=== PATIENT | female | born 1990 | race Caucasian/White ===

== ENCOUNTER 2017-02-24 13:49 | Emergency (ER) | payer BC, MEDICAID ==
[~2017-02-24] VITALS: Ht 162.6 cm; Wt 59.0 kg
[2017-02-24] MEDS ORDERED: INSU100V3 SUBCUT (13:54)
[2017-02-24] MEDS ORDERED: TRAMADOL 50MG TABLET PO ONE (15:45)
[2017-02-24 17:13] VITALS: BP 122/84
== END 2017-02-24 17:14 | disposition home or self-care (01) ==
LOC: ER 14:19
DX: M54.5 Low back pain (principal); M47.817 Spondylosis without myelopathy or radiculopathy, lumbosacral region; E11.69 Type 2 diabetes mellitus with other specified complication; W18.30XA Fall on same level, unspecified, initial encounter; Y09 Assault by unspecified means; Y92.9 Unspecified place or not applicable; Y93.89 Activity, other specified
CPT/HCPCS: 72100; 99284

== ENCOUNTER 2018-12-24 22:21 | Emergency (ER) | payer BC, MEDICAID ==
[~2018-12-24] VITALS: Ht 165.1 cm; Wt 68.0 kg
[~2018-12-24 22:21] MED LIST: INSU100V3 SUBCUT
[2018-12-25] MEDS ORDERED: ONDANSETRON 4MG ODT PO ONE (00:45)
[2018-12-25] MEDS ORDERED: ONDANSETRON HCL 4MG/2ML INJ IV STA (00:52)
[2018-12-25] MEDS ORDERED: SODIUM CHLORIDE 0.9% 1,000 ML IV ONE ×3 (00:57→07:37)
[2018-12-25 01:22] LABS: BASOPHILS % 0.3 % (0.0-2.0); HEMATOCRIT. 43.2 % (36.0-48.0); HEMOGLOBIN. 14.7 g/dL (12.0-16.0); LYMPHOCYTES % 7.8 % (20.0-50.0); MEAN CORPUSCULAR VOLUME 91.2 fL (81.0-99.0); MEAN PLATELET VOLUME 9.4 fl (7.4-10.4); MONOCYTES % 2.3 % (2.0-8.0); NEUTROPHILS % 89.6 % (40.0-76.0); PLATELET 349 x1000/uL (130-400); RED BLOOD CELL COUNT 4.74 mill/uL (4.2-5.4); RED CELL DISTRIBUTION WIDTH 12.6 % (11.6-14.6)
[2018-12-25 01:26] LABS: CHLORIDE 98 mEq/L (98-107)
[2018-12-25 01:29] LABS: HCG SCREEN NEGATIVE
[2018-12-25 01:56] LABS: ETHANOL BLOOD < 10 mg/dL
[2018-12-25 03:22] LABS: CLARITY URINE CLEAR (CLEAR); COLOR URINE YELLOW (YELLOW); KETONES URINE 4+ (NEGATIVE); LEUKOCYTE ESTERASE URINE NEGATIVE (NEGATIVE); NITRITE URINE NEGATIVE (NEGATIVE); OCCULT BLOOD URINE 2+ (NEGATIVE); PROTEIN URINE NEGATIVE (NEGATIVE); SPECIFIC GRAVITY URINE 1.027 (1.005-1.030); UROBILINOGEN URINE 0.2 E.U./dL (0.2-1.0)
[2018-12-25] MEDS ORDERED: VISCOUS LIDOCAINE 2% 15 ML UDC PO STA (03:23)
[2018-12-25] MEDS ORDERED: MAGNESIUM/ALUMINUM HYDROXIDE/SIMETHICONE 30ML UDC PO STA (03:23)
[2018-12-25] MEDS ORDERED: ACETAMINOPHEN 325MG TABLET PO ONE (03:30)
[2018-12-25] MEDS ORDERED: ONDANSETRON HCL 4MG/2ML INJ IV ONE (03:30)
[2018-12-25 03:45] LABS: *AMPHETAMINES SCREEN URINE NEGATIVE (NEGATIVE)
[2018-12-25 03:46] LABS: *BARBITURATES SCREEN URINE NEGATIVE (NEGATIVE); *BENZODIAZEPINES SCREEN URINE NEGATIVE (NEGATIVE); *COCAINE SCREEN URINE NEGATIVE (NEGATIVE); OPIATES URINE SCREEN NEGATIVE (NEGATIVE); PHENCYCLIDINE URINE SCREEN NEGATIVE (NEGATIVE)
[2018-12-25 04:00] LABS: CANNABINOID URINE SCREEN PRESUMTIVE POSITIVE (NEGATIVE); METHADONE URINE SCREEN PRESUMTIVE POSITIVE (NEGATIVE)
[2018-12-25] MEDS ORDERED: HALOPERIDOL LACTATE 5MG/ML VIAL IM ONE (04:30)
[2018-12-25] MEDS ORDERED: DIPHENHYDRAMINE 50MG/ML VIAL IV SCH (05:30)
[2018-12-25] MEDS ORDERED: INSULIN REGULAR (HUMULIN R) UD 100 UNITS/ML SYR IV ONE ×2 (06:00→07:45)
[2018-12-25] MEDS ORDERED: INSULIN REGULAR (HUMULIN R) 300UNITS/3ML IV SCH (06:03)
[2018-12-25] MEDS ORDERED: INSULIN REGULAR (HUMULIN R) 300UNITS/3ML IV ONE (08:15)
[2018-12-25 10:47] VITALS: BP 112/78
== END 2018-12-25 11:00 | disposition home or self-care (01) ==
LOC: ER 22:21
DX: E10.65 Type 1 diabetes mellitus with hyperglycemia (principal); F12.20 Cannabis dependence, uncomplicated; R11.2 Nausea with vomiting, unspecified; F32.9 Major depressive disorder, single episode, unspecified; F41.9 Anxiety disorder, unspecified; Z79.4 Long term (current) use of insulin
CPT/HCPCS: 36415; 80053; 80305; 80320; 81003; 82010; 82962; 83690; 84703; 85025; 93005; 96361; 96372; 96374; 96375; 96376; 99284; J1200; J1630; J1815; J2405; J7030; Q0162; G0480

== ENCOUNTER 2019-05-19 08:09 | Emergency (ER) | payer MEDICAID ==
[~2019-05-19] VITALS: Ht 165.1 cm; Wt 66.0 kg
[2019-05-19 08:16] VITALS: BP 117/66
[2019-05-19] MEDS ORDERED: METHADONE (08:20)
== END 2019-05-19 09:35 | disposition left against medical advice (07) ==
LOC: ER 08:09
DX: F41.9 Anxiety disorder, unspecified (principal); E11.9 Type 2 diabetes mellitus without complications; Z53.21 Procedure and treatment not carried out due to patient leaving prior to being seen by health care provider
CPT/HCPCS: 82962

== ENCOUNTER 2019-07-20 08:24 | Inpatient (IN) | payer MEDICAID ==
[~2019-07-20] VITALS: Ht 172.7 cm; Wt 67.1 kg
[~2019-07-20 08:24] MED LIST changes: +INSU100I28 SQ; +INSU200I SQ; +KEPP500 MT; +METHADONE; +METO-293 MT
[2019-07-20] MEDS ORDERED: ACETAMINOPHEN WITH CODEINE 300/30MG TABLET PO STA (08:48)
[2019-07-20 09:00] LABS: BASOPHILS % 0.7 % (0.0-2.0); EOSINOPHILS % 1.4 % (0.0-5.0); HEMATOCRIT. 40.4 % (36.0-48.0); HEMOGLOBIN. 13.6 g/dL (12.0-16.0); LYMPHOCYTES % 24.5 % (20.0-50.0); MEAN CORPUSCULAR HEMOGLOBIN 31.9 pg (28.0-32.0); MEAN PLATELET VOLUME 8.6 fl (7.4-10.4); MONOCYTES % 4.1 % (2.0-8.0); NEUTROPHILS % 69.3 % (40.0-76.0); PLATELET 305 x1000/uL (130-400); RED BLOOD CELL COUNT 4.25 mill/uL (4.2-5.4); RED CELL DISTRIBUTION WIDTH 13.2 % (11.6-14.6)
[2019-07-20 09:08] LABS: CHLORIDE 100 mEq/L (98-107)
[2019-07-20 09:11] LABS: ETHANOL BLOOD < 10 mg/dL
[2019-07-20] MEDS ORDERED: KETOROLAC 15MG/ML VIAL IV ONE (09:15)
[2019-07-20 09:19] LABS: CLARITY URINE CLEAR (CLEAR); COLOR URINE YELLOW (YELLOW); KETONES URINE TRACE (NEGATIVE); LEUKOCYTE ESTERASE URINE NEGATIVE (NEGATIVE); NITRITE URINE NEGATIVE (NEGATIVE); OCCULT BLOOD URINE NEGATIVE (NEGATIVE); PH URINE 6.5 (4.5-8.0); PROTEIN URINE TRACE (NEGATIVE); SPECIFIC GRAVITY URINE 1.016 (1.005-1.030); UROBILINOGEN URINE 0.2 E.U./dL (0.2-1.0)
[2019-07-20 09:39] LABS: *AMPHETAMINES SCREEN URINE NEGATIVE (NEGATIVE)
[2019-07-20 09:40] LABS: *BARBITURATES SCREEN URINE NEGATIVE (NEGATIVE); *BENZODIAZEPINES SCREEN URINE NEGATIVE (NEGATIVE); *COCAINE SCREEN URINE NEGATIVE (NEGATIVE)
[2019-07-20 09:41] LABS: PHENCYCLIDINE URINE SCREEN NEGATIVE (NEGATIVE)
[2019-07-20 09:42] LABS: OPIATES URINE SCREEN NEGATIVE (NEGATIVE)
[2019-07-20 09:43] LABS: CANNABINOID URINE SCREEN PRESUMTIVE POSITIVE (NEGATIVE); METHADONE URINE SCREEN PRESUMTIVE POSITIVE (NEGATIVE)
[2019-07-20] MEDS ORDERED: ONDANSETRON HCL 4MG/2ML INJ IV STA (10:55)
[2019-07-20] MEDS ORDERED: MORPHINE SULFATE 4 MG/ML CPJ (NOT FOR IM USE) IV STA (10:55)
[2019-07-20] MEDS ORDERED: LORAZEPAM 2MG/ML CPJ ONE (11:17)
[2019-07-20] MEDS ORDERED: LORAZEPAM 2MG/ML CPJ IV ONE (11:45)
[2019-07-20 14:18] VITALS: BP 118/69
[2019-07-20 14:30] VITALS: BP 118/69
[2019-07-20] MEDS ORDERED: HYDROCODONE/ACETAMINOPHEN 10/325MG TABLET PO PRN (15:00)
[2019-07-20] MEDS ORDERED: CLONIDINE 0.1MG TABLET PO PRN (15:15)
[2019-07-20] MEDS ORDERED: CLONIDINE 0.1MG TABLET PO NR (15:30)
[2019-07-20 16:00] VITALS: BP 101/58
[2019-07-20] MEDS ORDERED: LORAZEPAM 2MG/ML CPJ IV PRN (16:00)
[2019-07-20] MEDS ORDERED: ACETAMINOPHEN 325MG TABLET PO PRN (16:00)
[2019-07-20] MEDS ORDERED: DEXTROSE 50% WATER 50ML SYRINGE IV PRN (16:00)
[2019-07-20] MEDS ORDERED: SODIUM CHLORIDE 0.45% 1,000 ML IV SCH (16:00)
[2019-07-20] MEDS: BLOOD SUGAR DIAGNOSTIC STRIP TEST SCH ×2 (17:24→21:23)
[2019-07-20] MEDS: ENOXAPARIN 40MG/0.4ML SYR SUBCUT SCH (17:31)
[2019-07-20] MEDS: INSULIN LISPRO 100 UNITS/ML SUBCUT SCH ×2 (17:33→21:00)
[2019-07-20 20:00] VITALS: BP 95/49
[2019-07-20] MEDS: LEVETIRACETAM 500MG TABLET PO SCH (20:21)
[2019-07-20] MEDS ORDERED: HYDROCODONE/ACETAMINOPHEN 5/325MG TABLET PO PRN (22:45)
[2019-07-21] VITALS: BP 104/50
[2019-07-21 04:00] VITALS: BP 105/57
[2019-07-21] MEDS: BLOOD SUGAR DIAGNOSTIC STRIP TEST SCH ×2 (07:00→11:45)
[2019-07-21] MEDS: INSULIN LISPRO 100 UNITS/ML SUBCUT SCH ×2 (07:00→15:08)
[2019-07-21 08:00] VITALS: BP 108/58
[2019-07-21] MEDS ORDERED: ONDANSETRON HCL 4MG/2ML INJ IV PRN (08:45)
[2019-07-21] MEDS ORDERED: METHADONE HCL 10MG TABLET PO SCH (09:00)
[2019-07-21] MEDS ORDERED: METHADONE HCL 5MG TABLET PO SCH (09:00)
[2019-07-21] MEDS: LEVETIRACETAM 500MG TABLET PO SCH (09:24)
[2019-07-21 12:00] VITALS: BP 111/62
[2019-07-21 13:51] VITALS: BP 111/62
[2019-07-21 16:00] VITALS: BP 101/61
[2019-07-21] MEDS: ENOXAPARIN 40MG/0.4ML SYR SUBCUT SCH (16:00)
== END 2019-07-21 16:20 | disposition home or self-care (01) | DRG 53 ==
LOC: ER 08:30 → CANRESERV 13:27 → ENRESERV 13:27 → 5WST 15:06
PROVIDERS: ADMIT Internal Medicine; ATTEND Internal Medicine
PROC: 4A00X4Z Measurement of Central Nervous Electrical Activity, External Approach (ICD-10-PCS; principal; 2019-07-21)
DX: G40.909 Epilepsy, unspecified, not intractable, without status epilepticus (principal); K31.84 Gastroparesis; E11.43 Type 2 diabetes mellitus with diabetic autonomic (poly)neuropathy; E11.65 Type 2 diabetes mellitus with hyperglycemia; G89.4 Chronic pain syndrome; F32.9 Major depressive disorder, single episode, unspecified; F41.9 Anxiety disorder, unspecified; Z79.4 Long term (current) use of insulin; Z91.14 Patient's other noncompliance with medication regimen; Z93.3 Colostomy status; Z79.899 Other long term (current) drug therapy
CPT/HCPCS: 36415; 80053; 80305; 80320; 81003; 82962; 83036; 85025; 95816; 99285; J1650; J1815; J1885; J2060; J2270; J2405; G0480

== ENCOUNTER 2019-09-03 09:04 | Emergency (ER) | payer MEDICAID ==
[~2019-09-03] VITALS: Ht 162.6 cm; Wt 68.0 kg
[~2019-09-03 09:04] MED LIST changes: -INSU100V3 SUBCUT
[2019-09-03] MEDS ORDERED: SODIUM CHLORIDE 0.9% 1,000 ML IV ONE (09:58)
[2019-09-03] MEDS ORDERED: ONDANSETRON HCL 4MG/2ML INJ IV STA (09:58)
[2019-09-03] MEDS ORDERED: ACETAMINOPHEN 325MG TABLET PO ONE (10:00)
[2019-09-03 10:15] LABS: CHLORIDE 94 mEq/L (98-107)
[2019-09-03] MEDS ORDERED: INSULIN REGULAR (HUMULIN R) 300UNITS/3ML SUBCUT ONE ×2 (10:15→12:00)
[2019-09-03 10:18] LABS: BASOPHILS % 0.8 % (0.0-2.0); EOSINOPHILS % 0.6 % (0.0-5.0); HEMATOCRIT. 38.9 % (36.0-48.0); HEMOGLOBIN. 13.7 g/dL (12.0-16.0); LYMPHOCYTES % 22.2 % (20.0-50.0); MEAN CORPUSCULAR HEMOGLOBIN 32.3 pg (28.0-32.0); MEAN CORPUSCULAR VOLUME 91.5 fL (81.0-99.0); MEAN PLATELET VOLUME 8.7 fl (7.4-10.4); MONOCYTES % 4.3 % (2.0-8.0); NEUTROPHILS % 72.1 % (40.0-76.0); PLATELET 276 x1000/uL (130-400); RED BLOOD CELL COUNT 4.25 mill/uL (4.2-5.4); RED CELL DISTRIBUTION WIDTH 12.6 % (11.6-14.6)
[2019-09-03 10:19] LABS: PROTHROMBIN TIME 10.9 sec (9.6-11.0)
[2019-09-03 10:31] LABS: CLARITY URINE CLEAR (CLEAR); COLOR URINE YELLOW (YELLOW); KETONES URINE 4+ (NEGATIVE); LEUKOCYTE ESTERASE URINE NEGATIVE (NEGATIVE); NITRITE URINE NEGATIVE (NEGATIVE); OCCULT BLOOD URINE NEGATIVE (NEGATIVE); PROTEIN URINE NEGATIVE (NEGATIVE); SPECIFIC GRAVITY URINE 1.033 (1.005-1.030); UROBILINOGEN URINE 0.2 E.U./dL (0.2-1.0)
[2019-09-03 12:41] VITALS: BP 108/72
== END 2019-09-03 14:00 | disposition home or self-care (01) ==
LOC: ER 09:04
DX: R10.9 Unspecified abdominal pain (principal); E11.9 Type 2 diabetes mellitus without complications; F11.20 Opioid dependence, uncomplicated; Z79.4 Long term (current) use of insulin; Z79.899 Other long term (current) drug therapy; Z88.8 Allergy status to other drugs, medicaments and biological substances
CPT/HCPCS: 36415; 74176; 80053; 81003; 82962; 83690; 85025; 85610; 96361; 96372; 96374; 99285; J1815; J2405; J7030

== ENCOUNTER 2019-10-01 14:57 | Emergency (ER) | payer MEDICAID ==
[~2019-10-01] VITALS: Ht 162.6 cm; Wt 73.0 kg
[2019-10-01] MEDS ORDERED: CYCLOBENZAPRINE 10MG TABLET PO ONE (16:30)
[2019-10-01] MEDS ORDERED: KETOROLAC 30MG/ML VIAL IM ONE (16:30)
[2019-10-01 17:22] LABS: CLARITY URINE CLOUDY (CLEAR); COLOR URINE YELLOW (YELLOW); KETONES URINE NEGATIVE (NEGATIVE); LEUKOCYTE ESTERASE URINE 1+ (NEGATIVE); NITRITE URINE NEGATIVE (NEGATIVE); OCCULT BLOOD URINE NEGATIVE (NEGATIVE); PROTEIN URINE NEGATIVE (NEGATIVE); SPECIFIC GRAVITY URINE 1.016 (1.005-1.030); UROBILINOGEN URINE 0.2 E.U./dL (0.2-1.0)
[2019-10-01 18:47] VITALS: BP 116/70
== END 2019-10-01 19:19 | disposition home or self-care (01) ==
LOC: ER 14:57
DX: S39.012A Strain of muscle, fascia and tendon of lower back, initial encounter (principal); X50.0XXA Overexertion from strenuous movement or load, initial encounter; Y93.E9 Activity, other interior property and clothing maintenance; Y92.015 Private garage of single-family (private) house as the place of occurrence of the external cause; M43.16 Spondylolisthesis, lumbar region; E11.9 Type 2 diabetes mellitus without complications; G40.909 Epilepsy, unspecified, not intractable, without status epilepticus
CPT/HCPCS: 72131; 81003; 81025; 96372; 99284; J1885

== ENCOUNTER 2019-11-21 13:27 | Emergency (ER) | payer MEDICAID ==
[~2019-11-21] VITALS: Ht 170.2 cm; Wt 64.0 kg
[2019-11-21] MEDS ORDERED: KEPP500 PO (13:51)
[2019-11-21] MEDS ORDERED: SODIUM CHLORIDE 0.9% 1,000 ML IV ONE (14:18)
[2019-11-21] MEDS ORDERED: DIPHENHYDRAMINE 50MG/ML VIAL IV ONE (14:30)
[2019-11-21] MEDS ORDERED: METOCLOPRAMIDE HCL 10MG/2ML VIAL IV ONE (14:30)
[2019-11-21 14:58] LABS: BASOPHILS % 0.8 % (0.0-2.0); EOSINOPHILS % 1.8 % (0.0-5.0); HEMATOCRIT. 41.9 % (36.0-48.0); HEMOGLOBIN. 14.9 g/dL (12.0-16.0); LYMPHOCYTES % 15.2 % (20.0-50.0); MEAN CORPUSCULAR HEMOGLOBIN 32.1 pg (28.0-32.0); MEAN CORPUSCULAR VOLUME 90.3 fL (81.0-99.0); MEAN PLATELET VOLUME 8.2 fl (7.4-10.4); MONOCYTES % 2.7 % (2.0-8.0); NEUTROPHILS % 79.5 % (40.0-76.0); PLATELET 337 x1000/uL (130-400); RED BLOOD CELL COUNT 4.64 mill/uL (4.2-5.4)
[2019-11-21 15:03] LABS: CLARITY URINE CLEAR (CLEAR); COLOR URINE YELLOW (YELLOW); KETONES URINE 1+ (NEGATIVE); LEUKOCYTE ESTERASE URINE NEGATIVE (NEGATIVE); NITRITE URINE NEGATIVE (NEGATIVE); OCCULT BLOOD URINE NEGATIVE (NEGATIVE); PROTEIN URINE 1+ (NEGATIVE); SPECIFIC GRAVITY URINE 1.028 (1.005-1.030); UROBILINOGEN URINE 0.2 E.U./dL (0.2-1.0)
[2019-11-21 15:05] LABS: CHLORIDE 99 mEq/L (98-107)
[2019-11-21] MEDS ORDERED: KETOROLAC 15MG/ML VIAL IV ONE (15:30)
[2019-11-21] MEDS ORDERED: LORAZEPAM 2MG/ML CPJ ONE (15:54)
[2019-11-21] MEDS ORDERED: LORAZEPAM 2MG/ML CPJ IV ONE (16:00)
[2019-11-21] MEDS ORDERED: LEVETIRACETAM 500MG PREMIX 100 ML IV ONE (16:00)
[2019-11-21 20:10] VITALS: BP 96/53
== END 2019-11-21 21:34 | disposition home or self-care (01) ==
LOC: ER 13:37
DX: G40.909 Epilepsy, unspecified, not intractable, without status epilepticus (principal); R51 Headache; R03.0 Elevated blood-pressure reading, without diagnosis of hypertension; F19.10 Other psychoactive substance abuse, uncomplicated; E11.9 Type 2 diabetes mellitus without complications; Z79.4 Long term (current) use of insulin
CPT/HCPCS: 36415; 70450; 71045; 80053; 81003; 81025; 82962; 85025; 93005; 96361; 96365; 96375; 99285; J1200; J1885; J1953; J2060; J2765; J7030

== ENCOUNTER 2021-05-29 11:20 | Inpatient (IN) | payer MEDICAID ==
[~2021-05-29] VITALS: Ht 167.6 cm; Wt 95.7 kg
[~2021-05-29 11:20] MED LIST changes: +KEPP500 PO
[2021-05-29] MEDS ORDERED: SODIUM CHLORIDE 0.9% 1,000 ML IV ONE ×2 (12:00→12:45)
[2021-05-29] MEDS ORDERED: METOCLOPRAMIDE HCL 10MG/2ML VIAL IV ONE (12:00)
[2021-05-29 12:06] LABS: BASOPHILS % 0.2 % (0.0-2.0); EOSINOPHILS % 0.1 % (0.0-5.0); HEMOGLOBIN. 14.1 g/dL (12.0-16.0); LYMPHOCYTES % 7.5 % (20.0-50.0); MEAN CORPUSCULAR HEMOGLOBIN 31.3 pg (28.0-32.0); MEAN CORPUSCULAR VOLUME 90.9 fL (81.0-99.0); MEAN PLATELET VOLUME 8.4 fl (7.4-10.4); NEUTROPHILS % 87.2 % (40.0-76.0); PLATELET 310 x1000/uL (130-400); RED BLOOD CELL COUNT 4.51 mill/uL (4.2-5.4); RED CELL DISTRIBUTION WIDTH 12.5 % (11.6-14.6)
[2021-05-29 12:20] LABS: CLARITY URINE CLEAR (CLEAR); COLOR URINE YELLOW (YELLOW); KETONES URINE 4+ (NEGATIVE); LEUKOCYTE ESTERASE URINE NEGATIVE (NEGATIVE); NITRITE URINE NEGATIVE (NEGATIVE); OCCULT BLOOD URINE NEGATIVE (NEGATIVE); PROTEIN URINE NEGATIVE (NEGATIVE); SPECIFIC GRAVITY URINE 1.024 (1.005-1.030); UROBILINOGEN URINE 0.2 E.U./dL (0.2-1.0)
[2021-05-29 12:22] LABS: CHLORIDE 102 mEq/L (98-107)
[2021-05-29 12:28] LABS: BETA HYDROXYBUTYRATE 4.4 mMol/L (0.0-0.3)
[2021-05-29] MEDS ORDERED: INSULIN REGULAR (DRIP) 100 UNITS in SODIUM CHLORIDE 0.9% 100 ML IV ONE (13:00)
[2021-05-29] MEDS ORDERED: INSULIN REGULAR 100U/100ML PMX 100 ML IV ONE (13:00)
[2021-05-29 13:30] LABS: PHOSPHORUS 3.7 mg/dL (2.5-4.9)
[2021-05-29] MEDS ORDERED: KETOROLAC 15MG/ML VIAL IV ONE (13:30)
[2021-05-29 13:58] LABS: BG BASE EXCESS -10.9 mmol/L (-2.0-2.0); BG CARBOXYHEMOGLOBIN 0.4 % (0.5-1.5); BG DEOXYHEMOGLOBIN 3.8 % (0.0-5.0); BG FRACTION INSPIRED OXYGEN 21; BG HCO3 ACT 14.7 mmol/L (22.0-26.0); BG METHEMOGLOBIN 0.3 % (0.0-1.5); BG OXYGEN SATURATION 96.2 % (92.0-98.5); BG OXYHEMOGLOBIN 95.5 % (94.0-97.0); BG PCO2 32.2 mmHg (35.0-45.0); BG PH 7.277 (7.350-7.450); BG PO2 92.6 mmHg (75.0-100.0); BG SAMPLE SITE LEFT BRACHIAL; BG TOTAL HEMOGLOBIN 13.6 g/dL (12.0-18.0); BG VENT MODE ROOM AIR
[2021-05-29 14:20] LABS: CHLORIDE 107 mEq/L (98-107)
[2021-05-29] MEDS ORDERED: GUAIFENESIN 200MG/10ML SUGAR FREE UDC PO PRN (15:30)
[2021-05-29] MEDS: BLOOD SUGAR DIAGNOSTIC STRIP TEST SCH ×8 (15:30→22:30)
[2021-05-29] MEDS ORDERED: HYDRALAZINE 20MG/ML VIAL IV PRN (15:30)
[2021-05-29] MEDS ORDERED: DEXTROSE 50% WATER 50ML SYRINGE IV PRN ×2 (15:30)
[2021-05-29] MEDS ORDERED: ACETAMINOPHEN 325MG TABLET PO PRN (15:30)
[2021-05-29] MEDS ORDERED: CLONIDINE 0.1MG TABLET PO PRN (15:30)
[2021-05-29] MEDS ORDERED: DOCUSATE SODIUM 100MG CAPSULE PO PRN (15:30)
[2021-05-29] MEDS ORDERED: IPRATROPIUM/ALBUTEROL 0.5-3(2.5)MG/3ML NEB HHN PRN (15:30)
[2021-05-29] MEDS ORDERED: NALOXONE HCL 0.4MG/ML VIAL IV PRN (15:45)
[2021-05-29] MEDS: MORPHINE SULFATE 2 MG/ML CPJ (NOT FOR IM USE) IV PRN (16:05)
[2021-05-29] MEDS: SODIUM CHLORIDE 0.45% 1,000 ML IV SCH (16:11)
[2021-05-29] MEDS: ENOXAPARIN 40MG/0.4ML SYR SUBCUT SCH (16:16)
[2021-05-29 16:28] LABS: CHLORIDE 107 mEq/L (98-107)
[2021-05-29] MEDS: LORAZEPAM 2MG/ML CPJ IV PRN (17:45)
[2021-05-29] MEDS: DIPHENHYDRAMINE 50MG/ML VIAL IV PRN (17:45)
[2021-05-29] MEDS ORDERED: INSULIN REGULAR 100U/100ML PMX 100 ML IV SCH (18:00)
[2021-05-29] MEDS ORDERED: DEXT 5%/0.45% NACL 1000ML 1,000 ML IV ONE (18:00)
[2021-05-29 18:34] LABS: CHLORIDE 108 mEq/L (98-107)
[2021-05-29 20:39] LABS: CHLORIDE 107 mEq/L (98-107)
[2021-05-29] MEDS: HYDROCODONE/ACETAMINOPHEN 5/325MG TABLET PO PRN (21:56)
[2021-05-29] MEDS: SODIUM CHLORIDE 0.9% INJ 3ML FLUSH IVF SCH (22:53)
[2021-05-30] VITALS (14 sets, daily range): BP systolic 91–117; BP diastolic 39–58
[2021-05-30] MEDS: SODIUM CHLORIDE 0.45% 1,000 ML IV SCH ×3 (01:30→15:44)
[2021-05-30] MEDS: METOCLOPRAMIDE HCL 10MG/2ML VIAL IV PRN (02:17)
[2021-05-30] MEDS ORDERED: DEXTROSE 50% WATER 50ML SYRINGE IV PRN ×3 (02:30→10:45)
[2021-05-30] MEDS: MORPHINE SULFATE 2 MG/ML CPJ (NOT FOR IM USE) IV PRN (03:00)
[2021-05-30] MEDS: MAGNESIUM/ALUMINUM HYDROXIDE/SIMETHICONE 30ML UDC PO PRN (03:09)
[2021-05-30] MEDS: LORAZEPAM 2MG/ML CPJ IV PRN (03:53)
[2021-05-30] MEDS: HYDROCODONE/ACETAMINOPHEN 5/325MG TABLET PO PRN (05:37)
[2021-05-30] MEDS: ONDANSETRON HCL 4MG/2ML INJ IV PRN (05:37)
[2021-05-30] MEDS: SODIUM CHLORIDE 0.9% INJ 3ML FLUSH IVF SCH ×3 (05:41→22:00)
[2021-05-30] MEDS ORDERED: INSULIN REGULAR (HUMULIN R) 300UNITS/3ML VIAL SUBCUT SCH (06:30)
[2021-05-30] MEDS: INSULIN GLARGINE UD 100 UNITS/ML SYR SUBCUT SCH ×2 (06:36→07:04)
[2021-05-30] MEDS: BLOOD SUGAR DIAGNOSTIC STRIP TEST SCH ×11 (07:05→23:36)
[2021-05-30] MEDS: INSULIN REGULAR HUMAN (HIGH DOSE) 100 UNITS/ML 3ML VIAL SUBCUT SCH ×2 (07:15→12:15)
[2021-05-30 09:02] LABS: HEMATOCRIT. 33.8 % (36.0-48.0); HEMOGLOBIN. 11.3 g/dL (12.0-16.0); MEAN CORPUSCULAR VOLUME 93.2 fL (81.0-99.0); MEAN PLATELET VOLUME 8.7 fl (7.4-10.4); PLATELET 289 x1000/uL (130-400); RED BLOOD CELL COUNT 3.63 mill/uL (4.2-5.4)
[2021-05-30 09:32] LABS: CHLORIDE 101 mEq/L (98-107)
[2021-05-30] MEDS: LEVETIRACETAM 500MG TABLET PO SCH ×4 (10:00→21:21)
[2021-05-30] MEDS ORDERED: INSULIN LISPRO 100 UNITS/ML SUBCUT NR (10:00)
[2021-05-30] MEDS ORDERED: METOPROLOL TARTRATE 5MG/5ML VIAL IV NR (10:00)
[2021-05-30] MEDS ORDERED: SODIUM BICARBONATE 8.4% 1 MEQ/ML 50ML SYR IV NR (12:45)
[2021-05-30 13:42] LABS: PLATELET ESTIMATE NORMAL
[2021-05-30] MEDS: KETOROLAC 30MG/ML VIAL IV PRN ×2 (14:03→21:22)
[2021-05-30] MEDS ORDERED: METHADONE HCL 10MG TABLET PO NR (15:00)
[2021-05-30] MEDS: INSULIN REGULAR 100U/100ML PMX 100 ML IV SCH (15:11)
[2021-05-30 16:10] LABS: CHLORIDE 103 mEq/L (98-107)
[2021-05-30] MEDS: ENOXAPARIN 40MG/0.4ML SYR SUBCUT SCH (17:07)
[2021-05-30] MEDS: DEXT 5%/0.45% NACL 1000ML 1,000 ML IV SCH (18:28)
[2021-05-30 20:58] LABS: CHLORIDE 107 mEq/L (98-107)
[2021-05-30] MEDS ORDERED: INSULIN GLARGINE UD 100 UNITS/ML SYR SUBCUT SCH (22:00)
[2021-05-31] VITALS (24 sets, daily range): BP systolic 90–141; BP diastolic 44–79
[2021-05-31] MEDS: BLOOD SUGAR DIAGNOSTIC STRIP TEST SCH ×20 (01:00→18:53)
[2021-05-31] MEDS: SODIUM CHLORIDE 0.45% 1,000 ML IV SCH ×2 (02:28→21:58)
[2021-05-31] MEDS: DEXT 5%/0.45% NACL 1000ML 1,000 ML IV SCH ×3 (02:38→17:18)
[2021-05-31] MEDS: SODIUM CHLORIDE 0.9% INJ 3ML FLUSH IVF SCH ×3 (06:00→22:00)
[2021-05-31] MEDS: KETOROLAC 30MG/ML VIAL IV PRN ×2 (06:51→12:21)
[2021-05-31] MEDS: METOCLOPRAMIDE HCL 10MG/2ML VIAL IV PRN (08:48)
[2021-05-31] MEDS: ENOXAPARIN 30MG/0.3ML SYR SUBCUT SCH ×2 (08:48→21:19)
[2021-05-31] MEDS: LEVETIRACETAM 500MG TABLET PO SCH ×2 (08:48→21:00)
[2021-05-31] MEDS: MAGNESIUM/ALUMINUM HYDROXIDE/SIMETHICONE 30ML UDC PO PRN ×2 (12:44→21:06)
[2021-05-31] MEDS: METHADONE HCL 10MG TABLET PO SCH (14:06)
[2021-05-31] MEDS: DIPHENHYDRAMINE 50MG/ML VIAL IV PRN (17:12)
[2021-05-31] MEDS: INSULIN REGULAR 100U/100ML PMX 100 ML IV SCH (17:17)
[2021-05-31] MEDS ORDERED: KETOROLAC 30MG/ML VIAL IM PRN (19:15)
[2021-05-31 19:49] LABS: CHLORIDE 109 mEq/L (98-107)
[2021-05-31] MEDS ORDERED: POTASSIUM CHLORIDE 20MEQ TABLET SR PO NR ×2 (21:15→21:30)
[2021-05-31] MEDS ORDERED: DEXTROSE 50% WATER 50ML SYRINGE IV PRN (21:15)
[2021-05-31] MEDS: INSULIN GLARGINE UD 100 UNITS/ML SYR SUBCUT SCH (23:35)
[2021-06-01] VITALS (9 sets, daily range): BP systolic 117–125; BP diastolic 61–74
[2021-06-01] MEDS: ONDANSETRON HCL 4MG/2ML INJ IV PRN (00:35)
[2021-06-01] MEDS: SODIUM CHLORIDE 0.9% INJ 3ML FLUSH IVF SCH (05:22)
[2021-06-01] MEDS: SODIUM CHLORIDE 0.45% 1,000 ML IV SCH ×2 (05:22→13:37)
[2021-06-01 05:37] LABS: BASOPHILS % 0.8 % (0.0-2.0); EOSINOPHILS % 4.2 % (0.0-5.0); HEMATOCRIT. 30.9 % (36.0-48.0); HEMOGLOBIN. 10.8 g/dL (12.0-16.0); LYMPHOCYTES % 47.1 % (20.0-50.0); MEAN CORPUSCULAR HEMOGLOBIN 31.4 pg (28.0-32.0); MEAN PLATELET VOLUME 8.2 fl (7.4-10.4); MONOCYTES % 7.8 % (2.0-8.0); NEUTROPHILS % 40.1 % (40.0-76.0); PLATELET 199 x1000/uL (130-400); RED BLOOD CELL COUNT 3.43 mill/uL (4.2-5.4); RED CELL DISTRIBUTION WIDTH 12.2 % (11.6-14.6)
[2021-06-01 06:11] LABS: CHLORIDE 107 mEq/L (98-107)
[2021-06-01] MEDS: KETOROLAC 30MG/ML VIAL IV PRN (07:48)
[2021-06-01] MEDS: BLOOD SUGAR DIAGNOSTIC STRIP TEST SCH ×2 (08:20→13:27)
[2021-06-01] MEDS: ENOXAPARIN 30MG/0.3ML SYR SUBCUT SCH (08:32)
[2021-06-01] MEDS: METHADONE HCL 10MG TABLET PO SCH (08:33)
[2021-06-01] MEDS: LEVETIRACETAM 500MG TABLET PO SCH (08:34)
[2021-06-01] MEDS: INSULIN LISPRO 100 UNITS/ML SUBCUT SCH ×2 (08:34→13:36)
[2021-06-01] MEDS: METOCLOPRAMIDE HCL 10MG/2ML VIAL IV PRN (09:23)
[2021-06-01] MEDS: INSULIN GLARGINE UD 100 UNITS/ML SYR SUBCUT SCH (09:24)
[2021-06-01] MEDS ORDERED: PANTOPRAZOLE SODIUM 40 MG/VIAL IV NR (11:00)
[2021-06-01] MEDS ORDERED: SUCRALFATE 1G TABLET PO SCH (12:50)
== END 2021-06-01 14:28 | disposition home or self-care (01) | DRG 48 ==
LOC: ER 11:20 → MICUSO 13:29 → EDBEDREQTM 13:31 → EDBEDREQ 13:31 → ENRESERV 18:37 → EDBEDREQTM 20:43 → EDBEDREQSVC 20:43 → 5WST 05-30 01:50 → CVICU 05-30 14:15
PROVIDERS: ADMIT Internal Medicine; ATTEND Internal Medicine
DX: E10.43 Type 1 diabetes mellitus with diabetic autonomic (poly)neuropathy (principal); R65.10 Systemic inflammatory response syndrome (SIRS) of non-infectious origin without acute organ dysfunction; E10.10 Type 1 diabetes mellitus with ketoacidosis without coma; K31.84 Gastroparesis; E86.0 Dehydration; G40.909 Epilepsy, unspecified, not intractable, without status epilepticus; F32.A Depression, unspecified; F41.9 Anxiety disorder, unspecified; Z20.822 Contact with and (suspected) exposure to COVID-19; Z79.899 Other long term (current) drug therapy; F17.200 Nicotine dependence, unspecified, uncomplicated; Z79.4 Long term (current) use of insulin; Z88.8 Allergy status to other drugs, medicaments and biological substances; Z90.49 Acquired absence of other specified parts of digestive tract; F11.20 Opioid dependence, uncomplicated
CPT/HCPCS: 36415; 36600; 80048; 80053; 81003; 82010; 82375; 82805; 82962; 83735; 84100; 85025; 87426; 93005; 99291; C1893; C9113; J1200; J1650; J1815; J1885; J2060; J2270; J2405; J2765; J3490; J7030; J7050